=== PATIENT | female | born 1965 | race Two or more races ===

== ENCOUNTER 2025-02-04 13:51 | Inpatient (IN) | payer MEDICAID, SELFPAY ==
[2025-02-04 14:03] VITALS: BP 130/76; PULSE 89; RESP 18; TEMP 36.8; O2SAT 96; BMI 32.3
--- NOTE | 2025-02-04 14:14 | XR_ITS ---
Examination: CT abdomen with intravenous contrast CT pelvis with intravenous contrast 2-D coronal reconstructions 2-D sagittal reconstructions Date and time of exam: February 04, 2025, 1755 hours INDICATIONS: Right lower abdominal swelling and pain today. CTDI: vol (mGy) 11.7 DLP: (mGycm) 711 Technique: Multiple axial sections of the abdomen and pelvis have been obtained. 64 slice high-resolution scanner used. 3 mm axial sections have been obtained, post intravenous injection 60 cc [id number] 2-D sagittal, coronal reconstructions obtained. Low dose protocols were performed. One or more of the following dose reduction techniques were used; automated exposure control, adjustment of the mA and/or KV according to patient size, use of iterative reconstruction technique. Findings: No focal liver or splenic lesions Absent gallbladder No common bile duct stones No pancreatic mass Or peripancreatic edema Fat-containing left adrenal nodule 26 mm 2 mm nonobstructing right renal calculus, no hydronephrosis or ureteral calculi No bowel obstruction Normal appendix No pelvic mass Intact urinary bladder Extensive cellulitis pattern in the subcutaneous fatty tissue right lateral and anterior lower abdomen with skin thickening and probable enlarged right perineal lymph nodes axial image 257, cellulitis extending into the perineum Moderate osteopenia IMPRESSION: 2 mm nonobstructing right renal calculus Normal appendix Extensive cellulitis pattern in the subcutaneous fatty tissue right lateral and anterior lower abdomen with skin thickening, of the inflammation extending into the perineum No fluid-filled drainable abscess
--- NOTE | 2025-02-04 14:14 | XR_ITS ---
EXAMINATION: PA chest single view TECHNIQUE: Upright PA chest single view Date and time: February 04, 2025, 1422 hours, comparison October 12, 2015 INDICATIONS: Chest pain shortness of breath today. FINDINGS: Normal heart size. Lungs are clear. The osseous structures are intact. IMPRESSION: No active disease
--- NOTE | 2025-02-04 14:14 | EKG_ITS ---
[facility] Test Date: 2025-02-04 Pat Name: FAUSTINO RODAS Department: Room: - Gender: Female Science Job Titles: : 1965 Requested By: Aleksander Potter Order Number: [id number] Reading MD: Aleksanedr Potter Measurements Intervals Donie Rate: 92 P: 2 PA: 128 QRS: -3 QRSD: 75 T: 17 QT: 344 QTc: 426 Interpretive Statements SINUS RHYTHM LOW QRS VOLTAGE IN PRECORDIAL LEADS [QRS DEFLECTION < 1.0 mV IN CHEST LEADS] POSSIBLE ANTERIOR MYOCARDIAL INFARCTION , PROBABLY OLD [30 ms Q WAVE IN V3/V4, OR R < 0.2 mV IN V4] No previous ECG available for comparison /store/S0/[id number].pdf
--- NOTE | 2025-02-04 14:17 | PD.EDSKIN ---
ED Skin Abcess FB-RME/HPI General Chief complaint: Skin/Abscess/Foreign Body Stated complaint: SPIDER BITE R INNER THIGH Time Seen by Provider: 02/04/25 13:56 Arrival date/time: 02/04/25 13:51 59-year-old female patient with significant history of anxiety, chronic smoker, was brought in by family for evaluation regarding redness and swelling to the right lower abdominal wall. This been ongoing for the last 6 days, getting worse since 3 days ago associated with puslike drainage patient denies any fever but complain of severe pain. Denies any similar episode in the past. No medication was taken prior to ER visit. Related Data Previous Rx's ?Medication ?Instructions ?Recorded Xanax 0.25 mg 1 tab PO TID/PRN ANXIETY #12 tabs 03/21/15 Buspirone * (BUSPAR *) 10 mg PO BID PRN ANXIETY #10 tabs 10/12/15 cetirizine 10 mg tablet 10 mg PO QDAY #30 tabs 08/03/23 meloxicam 7.5 mg tablet 7.5 mg PO QDAY #10 tabs 10/27/23 Allergies Allergy/AdvReac Type Severity Reaction Status Date / Time No Known Allergies Allergy Verified 02/04/25 17:26 Review of Systems Review of Systems Narrative Review of Systems: Review of system reviewed and within normal limits except mentioned in HPI ED Exam Narrative Physical exam: VITAL SIGNS: Reviewed. GENERAL APPEARANCE: Alert and interactive, follows commands, no acute distress, HEAD AND FACE: Non-traumatic. ENT: PERRL, pink conjunctivitis, eyelid no trauma, Mucous membrane moist. NECK: Supple, nontender, no nuchal rigidity. CHEST: No tenderness, no crepitus, no paradoxical movement, no retractions. LUNGS: Clear, well ventilated, symmetric, no rales, no wheezing, no ronchi, no stridor, good breath sounds bilaterally. HEART: Regular rate, regular rhythm, no murmur, no gallops. ABDOMEN: Soft, positive bowel sounds, nondistended, no guarding,+6x 15 cm swelling, redness, tenderness right lower abdominal wall, with small opening with puslike drainage RECTAL: Deferred. GENITAL: Deferred. NEUROLOGICAL: Gross motor function intact sensory function intact, Appropriate for age. MUSCULOSKELETAL: low back nontender, full range of motion. EXTREMITIES: Nontender, full range of motion. SKIN: Color pink, dry, no rash, no lacerations, no abrasions, no contusions. LYMPHATICS: Deferred. Course Quality Measures none Orders Category Date Time Status COVID-19 Screening Questionnaire NOW Care 02/04/25 19:[address] Screening NOW Care 02/04/25 14:16 Active Decision to Admit X1 Care 02/04/25 19:14 Active EKG (ED ONLY) *Do not use* NOW Care 02/04/25 14:14 Completed Consult to General Surgery Stat Cons 02/04/25 19:[address] abdomen pelvis w con Stat Exams 02/04/25 14:14 Completed EKG (ED Only) Stat Exams 02/04/25 14:14 Draft XR chest 1V Stat Exams 02/04/25 14:14 Completed Blood Culture (Lab) Stat Lab 02/04/25 14:53 Received C-Reactive Protein Stat Lab 02/04/25 14:48 Completed CBC Stat Lab 02/04/25 14:48 Completed Comprehensive Metabolic Panel Stat Lab 02/04/25 14:48 Completed Lactate (Lactic Acid) Stat Lab 02/04/25 14:48 Completed Partial Thromboplastin Time Stat Lab 02/04/25 14:48 Completed Procalcitonin Stat Lab 02/04/25 14:48 Completed Clindamycin/Ns 600 mg Ivpb [Cleocin/Ns Ivpb] Med 02/04/25 14:16 Discontinued 600 mg in 50 ml IV X1 Ketorolac Inj [Toradol Inj] Med 02/04/25 14:14 Discontinued 30 mg IVP X1 ONE Morphine* Inj Med 02/04/25 18:16 Discontinued 4 mg IVP X1 ONE Piper/Tazo 3.375 gm Premix [Zosyn] Med 02/04/25 14:15 Discontinued 3.375 gm in 50 ml IV X1 Vital Signs Vital signs: Vital Signs Temperature 98.3 F 02/04/25 14:03 Pulse Rate 89 02/04/25 14:03 Respiratory Rate 18 02/04/25 14:03 Blood Pressure 130/76 02/04/25 14:03 Pulse Oximetry (%) 96 02/04/25 14:03 Oxygen Delivery Method Room Air 02/04/25 14:03 Skin / Abscess / Foreign Body MDM Narrative MDM Narrative:: 59-year-old female patient with significant history of anxiety, chronic smoker, was brought in by family for evaluation regarding redness and swelling to the right lower abdominal wall. This been ongoing for the last 6 days, getting worse since 3 days ago associated with puslike drainage patient denies any fever but complain of severe pain. Denies any similar episode in the past. No medication was taken prior to ER visit. Patient workup significant for leukocytosis 17,000, Pro-Josef slight elevated. Lactic acid is normal. Patient potassium was noted to be 3.3. CT scan of the abdomen and pelvis showed 2 mm nonobstructing right renal calculus Normal appendix Extensive cellulitis pattern in the subcutaneous fatty tissue right lateral and anterior lower abdomen with skin thickening, of the inflammation extending into the perineum No fluid-filled drainable abscess I personally reviewed and interpreted the x-ray of this patient. There is no acute abnormalities found, no infiltrates no pneumothorax no hemothorax normal chest x-ray. Review of other structures was without significant abnormal findings also. I additionally reviewed the radiologist report and agree with the interpretation. EKG showed normal sinus rhythm, ventricular rate of 92 bpm, no ST segment elevation or depression noted. Patient received IV Zosyn, IV clindamycin morphine and Toradol. I consulted Dr. Conte, spoke and discussed the case, and told me that hospitalist can admit the patient, IV antibiotic, as of now he is not planning to do anything. Spoke with hospitalist who admitted the patient. Patient data External records reviewed:: None Clinical information provided by:: patient Social determinants that could affect healthcare access:: none Patient has the following chronic illnesses:: None How is presenting disease/condition affected by chronic disease/condition?: no chronic disease Evaluation data The following diagnostics were reviewed and interpreted by me:: lab results, radiology exam(s) and EKG tracing(s) Lab and/or radiology exams considered but not ordered:: none Interpretation Summary: See results MDM Medications / Prescriptions Medications or Prescriptions considered but not ordered:: None Medication administrations:: Medication Administration History Discontinued Medications Piperacillin/Tazobactam/Dextrose (Zosyn) 3.375 gm in 50 mls @ 100 mls/hr IV X1 ONE; Protocol Stop: 02/04/25 14:44 Last Infusion: 02/04/25 17:53 Dose: Infused Documented By: Admin: 02/04/25 17:20 Dose: 100 mls/hr Documented By: MORELIA Clindamycin/Sodium Chloride (Cleocin/Ns Ivpb) 600 mg in 50 mls @ 100 mls/hr IV X1 ONE Stop: 02/04/25 14:45 Last Infusion: 02/04/25 17:53 Dose: Infused Documented By: Admin: 02/04/25 17:20 Dose: 100 mls/hr Documented By: MORELIA Ketorolac Tromethamine (Ketorolac Inj 30 Mg/Ml Vial) 30 mg IVP X1 ONE Stop: 02/04/25 14:15 Last Admin: 02/04/25 17:19 Dose: 30 mg Documented By: MORELIA Morphine Sulfate (Morphine Sulf Inj 4 Mg/Ml Vial) 4 mg IVP X1 ONE Stop: 02/04/25 18:17 Last Admin: 02/04/25 18:33 Dose: 4 mg Documented By: MORELIA Morphine, Toradol, clinda Zosyn Consultations Consultation(s) initiated? (list below): No Diagnosis Skin/Abscess Differential Diagnosis: abscess of skin or subcutaneous tissue and cellulitis Most likely diagnosis given after review of the tests above:: Abdominal wall cellulitis/abscess Admission Indicated Admission indicated?: indicated Explain why admission is indicated or not indicated:: For further management IV antibiotic Admission Request Was there a request for admission?: Yes Admission Attestation Admission request attestation: Discussed case with Hospitalist service regarding admission. Discussed patients ED course, exam findings, labs, and radiology results. The Hospitalist [agrees to accept the patient for admission. Disposition Plan Disposition Plan: Admit Discharge Plan Plan Patient Disposition: Admit Acute Care w/in Hospital Prescriptions/Referrals Prescriptions/Med Rec: No Action Xanax 0.25 mg 1 tab PO TID/PRN ANXIETY Qty: 12 0RF Buspirone * (BUSPAR *) 10 MG tablet 10 mg PO BID PRN (Reason: ANXIETY) Qty: 10 0RF cetirizine 10 mg tablet 10 mg PO QDAY Qty: 30 0RF meloxicam 7.5 mg tablet 7.5 mg PO QDAY Qty: 10 0RF Problem List Clinical Impression: Cellulitis of right abdominal wall Patient/Caregiver Discharge Instructions Print Language: Turkmen Stand Alone Forms: Ramila Award Info., Patient Portal Info Letter
[2025-02-04 15:02] LABS: Lactate (Lactic Acid) 1.2 mMol/L (0.4-2.0)
[2025-02-04 15:05] LABS: Basophils # (Auto) 0.0 Thou/mm3 (0.0-0.2); Basophils % (Auto) 0 % (0-2.5); Eosinophils # (Auto) 0.1 Thou/mm3 (0.0-0.5); Eosinophils % (Auto) 1 % (0-10); Hematocrit 36.6 % (36.0-46.0); Hemoglobin 12.4 g/dL (12.0-16.0); Immature Granulocytes Auto 0.11 Thou/mm3 (0.00-0.00); Lymphocytes # (Auto) 1.4 Thou/mm3 (1.0-4.8); Lymphocytes % (Auto) 8 % (10-50); Mean Corpuscular HGB Conc 33.9 g/dl (31.0-37.0); Mean Corpuscular Hemoglobin 31.8 pg (25.0-35.0); Mean Corpuscular Volume 94 fL (80-100); Monocytes # (Auto) 0.9 Thou/mm3 (0.0-0.8); Monocytes % (Auto) 5 % (0-12); Neutrophils # (Auto) 14.8 Thou/mm3 (1.8-7.7); Neutrophils % (Auto) 86 % (37-80); Nucleated Red Blood Cell # 0.00 Thou/mm3 (0.00-0.00); Nucleated Red Blood Cell % 0 /100 WBC (0); Platelet Count 400 Thou/mm3 (140-440); RDW Standard Deviation 46.7 fL (36.4-46.3); Red Blood Count 3.90 Miln/mm3 (4.00-5.20); White Blood Count 17.3 Thou/mm3 (3.6-11.0)
[2025-02-04 15:30] LABS: Partial Thromboplastin Time 28.9 Seconds (22.0-36.0)
[2025-02-04 15:44] LABS: Alanine Aminotransferase 23 U/L (10-49); Albumin, Serum 4.0 gm/dL (3.5-5.0); Albumin/Globulin Ratio 1.5 (1.2-2.2); Alkaline Phosphatase 146 U/L (46-116); Anion Gap 11 (7-16); Aspartate Amino Transferase 21 U/L (0-34); BUN/Creatinine Ratio 21 Ratio (12-20); Bilirubin,Total 0.3 mg/dL (0.3-1.2); Blood Urea Nitrogen 15 mg/dL (9-23); Calcium 8.8 mg/dL (8.3-10.6); Calcium (Corrected) 8.8 mg/dL (8.5-10.1); Carbon Dioxide 22.4 mMol/L (20.0-31.0); Chloride 106 mMol/L (98-107); Creatinine (Component) 0.7 mg/dL (0.6-1.3); Estimated Creatinine Clearance 98.2 mL/min (>60); Globulin 2.7 gm/dL (2.3-3.5); Glucose 104 mg/dL (74-106); Osmolality,Calculated 278 (275-295); Potassium 3.3 mMol/L (3.4-5.1); Procalcitonin 1.45 ng/ml (0.0-0.49); Sodium 139 mMol/L (136-145); Total Protein 6.7 gm/dL (5.7-8.2); eGFR > 60 See Note
[2025-02-04 16:13] LABS: C-Reactive Protein 26.5 mg/dL (0.0-0.9)
[2025-02-04 17:05] VITALS: BP 117/67; PULSE 84; RESP 20; TEMP 36.8; O2SAT 99
[2025-02-04] MEDS: KETOROLAC INJ 30 MG/ML VIAL IVP (17:19)
[2025-02-04] MEDS: PIPER/TAZO 3.375 GM PREMIX 3.375 GM/50 ML BAG IV (17:20)
[2025-02-04] MEDS: CLINDAMYCIN/NS 600 MG IVPB 600 MG/50 ML BAG 100 MG IV (17:20)
[2025-02-04] MEDS: MORPHINE SULF INJ 4 MG/ML VIAL IVP (18:33)
--- NOTE | 2025-02-04 23:02 | PC.NURSE ---
REPORT GIVEN TO FLOOR GEGE SUTTON
--- NOTE | 2025-02-04 23:18 | PD.RESHP ---
Documentation for date of: 02/04/25 HPI History of Present Illness History of present illness: Ms. Winchester is a 59 y/o female with PMH anxiety, tobacco use who presented to the ED on 02/04 with progressive erythema, pain, and swelling of the right lower abdominal wall that extends to mons pubis and vulva x 7 days. She first noticed the redness develop 7 days ago associated with pruritus, resulting in itching of the affected area. Associated with pus-like drainage. Denies trauma of the area, recent infection, immunosuppression, diabetes. Denies fever, chills, myalgia, malaise, nausea, vomiting, constipation, diarrhea, urinary sx. ED course: Afebrile, VSS. Labs significant for WBC 17.3, K 3.3, alk phos 146, lactic acid 1.2, CRP 26.5, procal 1.45. CT a/p w/ contrast showed 2 mm nonobstructing right renal calculus; cellulitis of right lateral and anterior lower abdomen extending into perineum, no drainable abscess. Consulted Dg, noted no surgical intervention appropriate at this time. Given ketorolac 30 mg IV, Zosyn 3.365 g IV, Clindamycin 600 mg IV, morphine 4 mg IV. PMHx: anxiety, tobacco use Allergies: NKDA Home meds: none SgHx: cholecystectomy SHx: Smokes 3-4 cigarettes per day x 20 years. Denies EtOH or recreational drug use. FHx: none reported Review of Systems Review of Systems Narrative Review of Systems: 14 point ROS negative other than HPI Exam Vital Signs Temp Pulse Resp BP Pulse Ox O2 Del Method 98.2 F 84 20 117/67 99 Room Air 02/04/25 17:05 02/04/25 17:05 02/04/25 17:05 02/04/25 17:05 02/04/25 17:05 02/04/25 17:05 Narrative Exam General: No acute distress, well nourished Eye: PERRL, EOMI, normal conjunctiva, no scleral icterus HENT: Normocephalic, atraumatic, normal hearing, moist oral mucosa Neck: Supple, non-tender, no JVD, no lymphadenopathy Lungs: Clear to auscultation bilaterally, non-labored respirations, symmetric chest rise, no use of accessory muscles Heart: Normal S1 and S2, no S3 or S4 appreciated. Normal rate and regular rhythm, no murmurs, rubs gallops, or edema. Peripheral pulses intact bilaterally, capillary refill brisk distally Abdomen: Soft, non-tender, non-distended, normal bowel sounds. No guarding or rebound tenderness. Musculoskeletal: Normal range of motion and strength, no tenderness or swelling Skin: Erythematous, warm, edematous, firm and exquisitely tender area of right lower quadrant extending to left lower abdomen, mons pubis, and vulva. One open lesion on the mons pubis weeping serosanguinous fluid Neurologic: Alert, awake and oriented x3. CN II-XII grossly intact. No focal neuro deficits. No signs of meningeal irritation noted. Psychiatric: Cooperative, appropriate mood and affect Results: Labs 02/05/25 04:48 02/05/25 07:20 Labs: Short CBC 02/04/25 Range/Units 14:48 WBC 17.3 H (3.6-11.0) Thou/mm3 Hgb 12.4 (12.0-16.0) g/dL Hct 36.6 (36.0-46.0) % Plt Count 400 (140-440) Thou/mm3 BMP 02/04/25 14:48 Sodium 139 Potassium 3.3 L Chloride 106 Carbon Dioxide 22.4 BUN 15 Creatinine 0.7 Glucose 104 Calcium 8.8 Liver Function 02/04/25 Range/Units 14:48 Total Bilirubin 0.3 (0.3-1.2) mg/dL AST 21 (0-34) U/L ALT 23 (10-49) U/L Alkaline Phosphatase 146 H (46-116) U/L Albumin 4.0 (3.5-5.0) gm/dL Quality Measures Quality Measures VTE prophylaxis Medications Home Medications and Allergies Allergies Allergy/AdvReac Type Severity Reaction Status Date / Time No Known Allergies Allergy Verified 02/04/25 17:26 Visit Medications Acetaminophen (Acetaminophen 325 Mg Tablet) 650 mg PO Q6H PRN PRN Reason: Fever >100.3 Stop: 03/06/25 21:35 Acetaminophen (Acetaminophen 325 Mg Tablet) 650 mg PO Q6H PRN PRN Reason: PAIN SCALE 1-3 (mild Stop: 03/06/25 21:35 Heparin Sodium (Porcine) (Heparin Sod Inj 5000 Unit/Ml Vial) 5,000 unit SC Q8HR IMAN Stop: 02/18/25 21:59 Piperacillin/Tazobactam/Dextrose (Zosyn) 50 mls @ 100 mls/hr IV Q6HR IMAN; Protocol Stop: 02/11/25 21:40 Morphine Sulfate (Morphine Sulf Inj 4 Mg/Ml Vial) 2 mg IVP Q6HR PRN PRN Reason: pain 4-7 Stop: 02/09/25 21:38 Ondansetron HCl (Ondansetron Inj 2 Mg/Ml Inj 2 Ml) 4 mg IVP Q6H PRN; Protocol PRN Reason: NAUSEA OR VOMITING Stop: 03/06/25 21:35 Discontinued Medications Piperacillin/Tazobactam/Dextrose (Zosyn) 3.375 gm in 50 mls @ 100 mls/hr IV X1 ONE; Protocol Stop: 02/04/25 14:44 Last Infusion: 02/04/25 17:53 Dose: Infused Clindamycin/Sodium Chloride (Cleocin/Ns Ivpb) 600 mg in 50 mls @ 100 mls/hr IV X1 ONE Stop: 02/04/25 14:45 Last Infusion: 02/04/25 17:53 Dose: Infused Ketorolac Tromethamine (Ketorolac Inj 30 Mg/Ml Vial) 30 mg IVP X1 ONE Stop: 02/04/25 14:15 Last Admin: 02/04/25 17:19 Dose: 30 mg Morphine Sulfate (Morphine Sulf Inj 4 Mg/Ml Vial) 4 mg IVP X1 ONE Stop: 02/04/25 18:17 Last Admin: 02/04/25 18:33 Dose: 4 mg Assessment & Plan Plan Ms. Winchester is a 59 y/o female with PMH anxiety, tobacco use who presented to the ED on 02/04 with progressive erythema, pain, and swelling of the right lower abdominal wall that extends to mons pubis and vulva x 7 days. Admitted for cellulitis. #Cellulitis of right lateral and anterior lower abdomen Erythema, edema, warmth, and TTP RLQ, mons pubis, and vulva with lesion weeping serosanguinous fluid x 7 days Afebrile, leukocytosis WBC 17.3. Lactic acid WNL. Procal 1.45, CRP 26.5. Seen on CT a/p w/ - extends into peritoneum. No fluid filled abscess to drain Dr. Conte consulted, no surgical intervention required at this time Given ketorolac 30 mg IV, Zosyn 3.365 g IV, Clindamycin 600 mg IV, morphine 4 mg IV. Risk factors: smoking, obesity Plan: - Consulted gen surg, appreciate recs - Zosyn 3.375 g IV q6h, Vancomycin - Tylenol PO PRN, Morphine 2 mg IV q6h PRN - Pending blood cx, HIV, A1C #Hypokalemia On admit K 3.3 Plan: - Replete as needed #Normocytic anemia No symptoms/signs of active bleed Continue to monitor daily cbc follow up with pcp. #Class I obesity Dietery adjustment and exercise recommended. Follow up outpatient with pcp Checklist Dispo: Admit to med surg for IV abx Diet: Regular Bowel Reg: doc/senna PRN VTE ppx: heparin subQ GI ppx: n/a Pain mgmt: Tylenol PO PRN, morphine 2 mg IV q6h PRN Code status: full Plan discussed with Dr. Scott and Dr. Yenifer Evangelista MD PGY1 Attending Provider Attestation/Addendum After examination of the patient and review of the clinical data I feel that this patient needs admission to the hospital for further treatment/evaluation. Plan of care discussed with patient and is in agreement. I Cindy Street MD, attest that I was physically present for loaiza portions of evaluation, and examined patient, labs and imagings and plan of care were discussed with IM residents team, and I agree with the findings and plans documented above.
[2025-02-05] MEDS: PIPER/TAZO 3.375 GM PREMIX 3.375 GM/50 ML BAG IV ×4 (00:11→21:04)
[2025-02-05] MEDS: HEPARIN SOD INJ 5000 UNIT/ML VIAL SC ×4 (00:11→21:05)
[2025-02-05 00:14] LABS: HIV (1&2) Antibody Rapid Non-Reactive
[2025-02-05 00:23] VITALS: BMI 32.3
[2025-02-05] MEDS: MORPHINE SULF INJ 4 MG/ML VIAL 2 MG IVP ×4 (01:02→20:50)
[2025-02-05] MEDS: VANCOMYCIN/NS 1 GM IVPB 200 ML IV (01:04)
[2025-02-05 01:05] VITALS: BP 114/63; PULSE 85; RESP 18; TEMP 36.7; O2SAT 97
[2025-02-05 01:41] LABS: INR 1.0 (0.9-1.3); Prothrombin Time 10.3 Seconds (9.0-12.2)
[2025-02-05 04:00] VITALS: BP 102/60; PULSE 85; RESP 16; TEMP 36.7; O2SAT 95
[2025-02-05] MEDS: ACETAMINOPHEN 325 MG TABLET 650 MG PO (05:35)
[2025-02-05 06:14] LABS: Basophils # (Auto) 0.0 Thou/mm3 (0.0-0.2); Basophils % (Auto) 0 % (0-2.5); Eosinophils # (Auto) 0.1 Thou/mm3 (0.0-0.5); Eosinophils % (Auto) 1 % (0-10); Hematocrit 31.4 % (36.0-46.0); Hemoglobin 10.6 g/dL (12.0-16.0); Immature Granulocytes Auto 0.09 Thou/mm3 (0.00-0.00); Lymphocytes # (Auto) 1.8 Thou/mm3 (1.0-4.8); Lymphocytes % (Auto) 13 % (10-50); Mean Corpuscular HGB Conc 33.8 g/dl (31.0-37.0); Mean Corpuscular Hemoglobin 32.0 pg (25.0-35.0); Mean Corpuscular Volume 95 fL (80-100); Monocytes # (Auto) 0.9 Thou/mm3 (0.0-0.8); Monocytes % (Auto) 7 % (0-12); Neutrophils # (Auto) 11.2 Thou/mm3 (1.8-7.7); Neutrophils % (Auto) 80 % (37-80); Nucleated Red Blood Cell # 0.00 Thou/mm3 (0.00-0.00); Nucleated Red Blood Cell % 0 /100 WBC (0); Platelet Count 371 Thou/mm3 (140-440); RDW Standard Deviation 47.8 fL (36.4-46.3); Red Blood Count 3.31 Miln/mm3 (4.00-5.20); White Blood Count 14.0 Thou/mm3 (3.6-11.0)
[2025-02-05 06:41] LABS: Glucose Estimated Average 100 mg/dL (80-131); Hemoglobin A1C 5.1 % Hgb (4.8-6.0)
[2025-02-05 08:00] VITALS: BP 108/60; PULSE 78; RESP 18; TEMP 36.3; O2SAT 96
[2025-02-05 09:03] LABS: Alanine Aminotransferase 26 U/L (10-49); Albumin, Serum 3.3 gm/dL (3.5-5.0); Albumin/Globulin Ratio 2.1 (1.2-2.2); Alkaline Phosphatase 125 U/L (46-116); Anion Gap 7 (7-16); Aspartate Amino Transferase 27 U/L (0-34); BUN/Creatinine Ratio 30 Ratio (12-20); Bilirubin,Total 0.3 mg/dL (0.3-1.2); Blood Urea Nitrogen 18 mg/dL (9-23); Calcium 8.0 mg/dL (8.3-10.6); Calcium (Corrected) 8.6 mg/dL (8.5-10.1); Carbon Dioxide 22.1 mMol/L (20.0-31.0); Chloride 106 mMol/L (98-107); Creatinine (Component) 0.6 mg/dL (0.6-1.3); Estimated Creatinine Clearance 114.5 mL/min (>60); Globulin 1.6 gm/dL (2.3-3.5); Glucose 101 mg/dL (74-106); Magnesium 1.8 mg/dL (1.6-2.6); Osmolality,Calculated 272 (275-295); Phosphorous 2.5 mg/dL (2.4-5.1); Potassium 4.3 mMol/L (3.4-5.1); Sodium 135 mMol/L (136-145); Total Protein 4.9 gm/dL (5.7-8.2); eGFR > 60 See Note
--- NOTE | 2025-02-05 09:35 | PC.SS ---
Follow up note: Blood cultures pending. On IV antibiotic.
[2025-02-05] MEDS: VANCOMYCIN/D5W 1,250 MG IVPB 250 ML 120 MG IV ×2 (10:19→21:05)
--- NOTE | 2025-02-05 10:21 | PD.RESPRO ---
Documentation for date of: 02/05/25 Subjective Subjective Interval history: WBC count decreased from 17.5 to 14.0. On IV zosyn 3.375mg q6hr, IV vancomycin, IV Clindamycin 900mg IV q8hr, Waiting for blood culture, Consulted [facility]. Will continue to monitor. Exam Vital Signs Temp Pulse Resp BP Pulse Ox O2 Del Method 97.4 F 78 18 108/60 96 Room Air 02/05/25 08:00 02/05/25 08:00 02/05/25 08:00 02/05/25 08:00 02/05/25 08:00 02/05/25 08:00 Narrative Exam General: No acute distress, well nourished, AAO x3 Eye: PERRL, EOMI, normal conjunctiva, no scleral icterus HENT: Normocephalic, atraumatic, hearing intact to conversation at normal volume, moist oral mucosa Neck: Supple, non-tender, no JVD, no lymphadenopathy Lungs: Non-labored respirations, symmetric chest rise, Clear to auscultate bilaterally, No wheezing, rhonchi, crackles Heart: Peripheral pulses intact bilaterally, Regular Rate and Rhythm. Abdomen: see Skin Musculoskeletal: Normal range of motion and strength, No cyanosis or edema, No visible joint swelling Skin: Swelling, erythema, and a firm, tender area extending from the right lower quadrant to the mid-left lower quadrant, involving the mons pubis and vulvar region. The area is malodorous with purulent and serosanguinous drainage, including dark blood. Psychiatric: Cooperative, appropriate mood and affect, Awake and alert, not agitated Neuro: Cranial nerves II-XII grossly intact. Strength 5/5 throughout. Sensations intact to light touch. Objective Labs 02/06/25 05:23 02/06/25 05:23 Labs: Laboratory Results - last 24 hr 02/04/25 02/04/25 02/05/25 14:48 19:48 00:11 WBC 17.3 H RBC 3.90 L Hgb 12.4 Hct 36.6 MCV 94 MCH 31.8 MCHC 33.9 RDW Std Deviation 46.7 H Plt Count 400 Neut % (Auto) 86 H Lymph % (Auto) 8 L [place] % (Auto) 5 Eos % (Auto) 1 Baso % (Auto) 0 Neut # (Auto) 14.8 H Lymph # (Auto) 1.4 [place] # (Auto) 0.9 H Eos # (Auto) 0.1 Baso # (Auto) 0.0 Immature Gran # (Auto) 0.11 H Absolute Nucleated RBC 0.00 Immature Gran % 1 H Nucleated RBC % 0 PT Cancelled 10.3 INR Cancelled 1.0 APTT 28.9 Sodium 139 Potassium 3.3 L Chloride 106 Carbon Dioxide 22.4 Anion Gap 11 BUN 15 Creatinine 0.7 Estim Creat Clear Calc 98.2 eGFR > 60 BUN/Creatinine Ratio 21 [address] Glucose [address] Glu mg/dL Hemoglobin A1c Calculated Osmolality 278 Lactic Acid 1.2 Calcium 8.8 Corrected Calcium 8.8 Phosphorus Magnesium Total Bilirubin 0.3 AST 21 ALT 23 Alkaline Phosphatase 146 H C-Reactive Prot, Quant 26.5 H Total Protein 6.7 Albumin 4.0 Globulin 2.7 Albumin/Globulin Ratio 1.5 Procalcitonin 1.45 H HIV 1&2 Antibody Rapid Non-Reactive 02/05/25 02/05/25 04:48 07:20 WBC 14.0 H RBC 3.31 L Hgb 10.6 L Hct 31.4 L MCV 95 MCH 32.0 MCHC 33.8 RDW Std Deviation 47.8 H Plt Count 371 Neut % (Auto) 80 Lymph % (Auto) 13 [place] % (Auto) 7 Eos % (Auto) 1 Baso % (Auto) 0 Neut # (Auto) 11.2 H Lymph # (Auto) 1.8 [place] # (Auto) 0.9 H Eos # (Auto) 0.1 Baso # (Auto) 0.0 Immature Gran # (Auto) 0.09 H Absolute Nucleated RBC 0.00 Immature Gran % 1 H Nucleated RBC % 0 PT INR APTT Sodium 135 L Potassium 4.3 D Chloride 106 Carbon Dioxide 22.1 Anion Gap 7 BUN 18 Creatinine 0.6 Estim Creat Clear Calc 114.5 eGFR > 60 BUN/Creatinine Ratio 30 H Glucose [address] Glu mg/dL 100 Hemoglobin A1c 5.1 Calculated Osmolality 272 L Lactic Acid Calcium 8.0 L Corrected Calcium 8.6 Phosphorus 2.5 Magnesium 1.8 Total Bilirubin 0.3 AST 27 ALT 26 Alkaline Phosphatase 125 H D C-Reactive Prot, Quant Total Protein 4.9 L Albumin 3.3 L D Globulin 1.6 L Albumin/Globulin Ratio 2.1 Procalcitonin HIV 1&2 Antibody Rapid Quality Measures Quality Measures none Assessment & Plan Assessment Current Active Medications: Generic Name Dose Route Start Last Admin Trade Name Freq PRN Reason Stop Dose Admin Acetaminophen 650 mg 02/04/25 21:36 Acetaminophen 325 Mg Tablet PO 03/06/25 21:35 Q6H PRN Fever >100.3 Acetaminophen 650 mg 02/04/25 21:36 02/05/25 05:35 Acetaminophen 325 Mg Tablet PO 03/06/25 21:35 650 mg Q6H PRN Administration PAIN SCALE 1-3 (mild Heparin Sodium (Porcine) 5,000 unit 02/04/25 22:00 02/05/25 05:23 Heparin Sod Inj 5000 Unit/Ml Vial SC 02/18/25 21:59 5,000 unit Q8HR IMAN Administration Piperacillin/Tazobactam/Dextrose 3.375 gm in 50 mls @ 12.5 mls/hr 02/05/25 14:00 Zosyn IV 02/12/25 13:59 Q8HR IMAN Protocol Vancomycin HCl/Dextrose 250 mls @ 120 mls/hr 02/05/25 10:00 02/05/25 10:19 Vancomycin/D5w 1,250 Mg Ivpb IV 02/12/25 09:59 120 mls/hr Q12H IMAN Administration Protocol Morphine Sulfate 2 mg 02/04/25 21:39 02/05/25 06:37 Morphine Sulf Inj 4 Mg/Ml Vial IVP 02/09/25 21:38 2 mg Q6HR PRN Administration pain 4-7 Ondansetron HCl 4 mg 02/04/25 21:36 Ondansetron Inj 2 Mg/Ml Inj 2 Ml IVP 03/06/25 21:35 Q6H PRN NAUSEA OR VOMITING Protocol Pharmacy Consult 1 each 02/05/25 09:00 Vancomycin Pharmacy To Dose 1 Each Each IV 03/07/25 08:59 QDAY PRN PROTOCOL Sennosides 1 tab 02/04/25 23:38 Senna/Docusate Sod 1 Tab Tablet PO 03/06/25 23:37 QDAY PRN CONSTIPATION Protocol Plan Ms. Winchester is a 59 y/o female with PMH anxiety, tobacco use who presented to the ED on 02/04 with progressive erythema, pain, and swelling of the right lower abdominal wall that extends to mons pubis and vulva x 7 days. Admitted for cellulitis. #Cellulitis of right lateral and anterior lower abdomen -Erythema, edema, warmth, and TTP RLQ, mons pubis, and vulva with lesion weeping serosanguinous fluid x 7 days -Afebrile, leukocytosis WBC 17.3. Lactic acid WNL. Procal 1.45, CRP 26.5. -Seen on CT a/p w/ - extends into peritoneum. No fluid filled abscess to drain -Dr. Conte consulted, no surgical intervention required at this time -Given ketorolac 30 mg IV, Zosyn 3.365 g IV, Clindamycin 600 mg IV, morphine 4 mg IV. -Risk factors: smoking, obesity Plan: - Consulted gen surg, appreciate recs - On IV zosyn 3.375mg q6hr, IV vancomycin, IV Clindamycin 900mg IV q8hr - Tylenol PO PRN, Morphine 2 mg IV q6h PRN - Pending blood cx, HIV, A1C #Hypokalemia On admit K 3.3 Plan: - Replete as needed Checklist Dispo: Admit to med surg for IV abx Diet: Regular Bowel Reg: doc/senna PRN VTE ppx: heparin subQ GI ppx: n/a Pain mgmt: Tylenol PO PRN, morphine 2 mg IV q6h PRN Code status: full Assessment and plan discussed with my attending physician Dr. Arthur and Dr. Luis (PGY-2) Dr. Fish (PGY-1) - Internal medicine resident Attending Provider Attestation/Addendum I have examined the patient, reviewed labs and imaging findings, discussed the case with the resident(s), and reviewed entered orders. I agree with the plan of care as outlined in this note, with these additional summaries/recommendations: Patient seen at bedside. Patient admitted overnight for significant cellulitis. CT abdomen and pelvis revealed extensive cellulitis pattern in the subcutaneous fatty tissue in right lateral and anterior lower abdomen with skin thickening and inflammation extending into the perineum. At bedside patient does not have any physical exam findings of peritonitis rebound tenderness or acute abdomen. She currently reports her pain is controlled. General surgery was consulted and no surgical intervention needed at this time. Continue broad-spectrum antibiotics. Blood cultures show no growth at 24 hours. Mild hypokalemia and replacement given. Repeat level in AM. Continue pain management. Patient to let medical team know if she would like nicotine patch. Patient updated on the plan and agreement. All questions answered satisfaction. Please see residents note for additional details and management. Dr. Sandhya MD
--- NOTE | 2025-02-05 11:46 | PC.SS ---
SS met with patient regarding her d/c plan. Pt is alert/oriented. Pt was admitted for Cellulitis. Pt confirmed demographic and contact information is correct on facesheet. Pt resides with son. Pt ambulates independently without assistance or DME. Pt is ok with all ADLs. Pt is employed abstractor. Patient?s pharmacy of choice is [facility]. Pt named her dtr, Concetta Winchester medical decision maker if she is unable. Patient?s choice is to return home upon d/c. Pt states she is not diabetic and is not on dialysis. Dtr will provide transportation. Pt states she followed up with PCP 3 years ago. Pt states she will schedule a follow up appointment with PCP. D/C plan: Return home Next of Kin: Arlin Winchester dtr, phone# [phone] PCP: [facility] Address: Correct on facesheet
[2025-02-05 12:00] VITALS: BP 90/59; PULSE 88; RESP 18; TEMP 36.6; O2SAT 98
--- NOTE | 2025-02-05 13:00 | PD.SURCONS ---
HPI Consult details Consult date: 02/05/25 Reason for consultation narrative: Lower abdominal cellulitis History of present illness: 59-year-old obese female with history of anxiety presented with worsening pain and erythema of right lower quadrant extending to perineum. Patient states that she may have been bitten by insect or spider about a week ago. She had some pain that has been getting progressively worse with increased erythema. She denies fever, chills, drainage or bleeding. She denies having similar symptoms in the past. CT scan revealed cellulitis without fluid collection. She was started on IV antibiotics and admitted. Since admission her symptoms are improving, the cellulitis have decreased from the previously placed markings. Review of Systems Constitutional Constitutional: Denies chills and Denies fever(s) Cardiovascular Cardiovascular: Denies chest pain Respiratory Respiratory: Denies cough Gastrointestinal Gastrointestinal: Reports abdominal pain, Denies nausea and Denies vomiting Genitourinary Genitourinary: Denies difficulty voiding Hematologic/Lymphatic Hematologic/Lymphatic: Denies easy bleeding and Denies easy bruising Past Medical History Surgical History OTHER SURGICAL HX: Cholecystectomy Social History SMOKING STATUS: Current every day smoker SUBSTANCE USE: does not use ALCOHOL: Never Meds Home Medications and Allergies Allergies Allergy/AdvReac Type Severity Reaction Status Date / Time No Known Allergies Allergy Verified 02/04/25 17:26 Exam Vital Signs Temp Pulse Resp BP Pulse Ox O2 Del Method 97.4 F 78 18 108/60 96 Room Air 02/05/25 08:00 02/05/25 08:00 02/05/25 08:00 02/05/25 08:00 02/05/25 08:00 02/05/25 08:00 Constitutional Constitutional: no acute distress Routine Abdominal Exam Comments: Abdomen is soft and nondistended. She has cellulitis of her right lower quadrant extending to mons pubis. She has tenderness to palpation with induration, there is no fluctuance at this time Results Results: Laboratory Laboratory results: results reviewed Results: Imaging CT scan - abdomen: report reviewed and image reviewed CT scan - pelvis: report reviewed and image reviewed Assessment & Plan Problem List (1) Cellulitis of right abdominal wall: Status: Acute Additional Assessment Additional comments: Significant cellulitis of lower abdominal wall extending to mons pubis without evidence of abscess at this time. Clinically improving Plan Continue IV antibiotics. Add clindamycin. No indications for surgical intervention at this time. She may require incision and drainage if she develops an abscess
[2025-02-05] MEDS: CLINDAMYCIN 900MG IVPB 900 MG in PRE-MIXED 1 BAG 50 MG IV ×2 (15:10→21:04)
[2025-02-05 16:00] VITALS: BP 120/73; PULSE 80; RESP 18; TEMP 36.3; O2SAT 97
[2025-02-05 20:00] VITALS: BP 114/59; PULSE 83; RESP 18; TEMP 36.4; O2SAT 97
[2025-02-06] VITALS: BP 130/70; PULSE 81; RESP 18; TEMP 36.7; O2SAT 98
[2025-02-06] MEDS: ACETAMINOPHEN 325 MG TABLET 650 MG PO (00:17)
[2025-02-06 04:00] VITALS: BP 103/65; PULSE 71; RESP 18; TEMP 36.1; O2SAT 97
[2025-02-06] MEDS: PIPER/TAZO 3.375 GM PREMIX 3.375 GM/50 ML BAG IV ×3 (05:33→21:07)
[2025-02-06] MEDS: HEPARIN SOD INJ 5000 UNIT/ML VIAL SC ×3 (05:34→21:07)
[2025-02-06] MEDS: CLINDAMYCIN 900MG IVPB 900 MG in PRE-MIXED 1 BAG 50 MG IV ×3 (05:34→21:06)
[2025-02-06 06:18] LABS: Basophils # (Auto) 0.0 Thou/mm3 (0.0-0.2); Basophils % (Auto) 0 % (0-2.5); Eosinophils # (Auto) 0.2 Thou/mm3 (0.0-0.5); Eosinophils % (Auto) 1 % (0-10); Hematocrit 30.9 % (36.0-46.0); Hemoglobin 10.4 g/dL (12.0-16.0); Immature Granulocytes Auto 0.13 Thou/mm3 (0.00-0.00); Lymphocytes # (Auto) 2.7 Thou/mm3 (1.0-4.8); Lymphocytes % (Auto) 21 % (10-50); Mean Corpuscular HGB Conc 33.7 g/dl (31.0-37.0); Mean Corpuscular Hemoglobin 31.8 pg (25.0-35.0); Mean Corpuscular Volume 95 fL (80-100); Monocytes # (Auto) 1.0 Thou/mm3 (0.0-0.8); Monocytes % (Auto) 8 % (0-12); Neutrophils # (Auto) 8.7 Thou/mm3 (1.8-7.7); Neutrophils % (Auto) 68 % (37-80); Nucleated Red Blood Cell # 0.00 Thou/mm3 (0.00-0.00); Nucleated Red Blood Cell % 0 /100 WBC (0); Platelet Count 368 Thou/mm3 (140-440); RDW Standard Deviation 47.6 fL (36.4-46.3); Red Blood Count 3.27 Miln/mm3 (4.00-5.20); White Blood Count 12.7 Thou/mm3 (3.6-11.0)
[2025-02-06 06:48] LABS: Alanine Aminotransferase 25 U/L (10-49); Albumin, Serum 3.5 gm/dL (3.5-5.0); Albumin/Globulin Ratio 1.8 (1.2-2.2); Alkaline Phosphatase 127 U/L (46-116); Anion Gap 10 (7-16); Aspartate Amino Transferase 20 U/L (0-34); BUN/Creatinine Ratio 17 Ratio (12-20); Bilirubin,Total 0.3 mg/dL (0.3-1.2); Blood Urea Nitrogen 10 mg/dL (9-23); Calcium 8.7 mg/dL (8.3-10.6); Calcium (Corrected) 9.1 mg/dL (8.5-10.1); Carbon Dioxide 24.5 mMol/L (20.0-31.0); Chloride 104 mMol/L (98-107); Creatinine (Component) 0.6 mg/dL (0.6-1.3); Estimated Creatinine Clearance 114.5 mL/min (>60); Globulin 2.0 gm/dL (2.3-3.5); Glucose 98 mg/dL (74-106); Magnesium 1.9 mg/dL (1.6-2.6); Osmolality,Calculated 274 (275-295); Phosphorous 3.5 mg/dL (2.4-5.1); Potassium 3.9 mMol/L (3.4-5.1); Sodium 138 mMol/L (136-145); Total Protein 5.5 gm/dL (5.7-8.2); eGFR > 60 See Note
[2025-02-06] MEDS: MORPHINE SULF INJ 4 MG/ML VIAL 2 MG IVP ×3 (07:36→21:07)
[2025-02-06 08:00] VITALS: BP 112/60; PULSE 76; RESP 19; TEMP 36.4; O2SAT 98
[2025-02-06] MEDS: VANCOMYCIN/D5W 1,250 MG IVPB 250 ML 120 MG IV ×2 (09:50→22:47)
--- NOTE | 2025-02-06 11:02 | ESPR_ITS ---
<Statement entered by Doreen Holbrook MD - 02/06/25 17:55> Patient was seen and examined at bedside. I agree on the assessment and plan on this note as documented by resident Anderson Fish DO PGY1. 59-year-old female with past medical history of anxiety and chronic smoking presented to [facility] ED on 02/04/2025 with progressive erythema pain and swelling in the right lower abdominal wall extending to perineal region, was evaluated by general surgery who recommended management with IV antibiotics for cellulitis, will continue IV Zosyn vancomycin and clindamycin, erythema has improved. Pending blood cultures, anticipate discharge in the next 24 hours post culture finalization, will likely be discharged on antibiotics with close outpatient follow-up. Case discussed with attending Dr. Pierce Holbrook MD PGY-2 Documentation for date of: 02/06/25 Subjective Subjective Interval history: Patient's abdominal cellulitis shows decreased erythema and edema compared to marked borders from prior assessment. Patient continues to report burning discomfort and noted minor serosanguinous oozing. Patient advised to avoid scratching the area. Will continue IV zosyn 3.375mg q8hr, IV vancomycin, IV Clindamycin 900mg IV q8hr. Added Nicotine patch x1. No Overnight events. Labs reviewed and patient examined at the bedside. Denies chest pain, palpation, SOB, N/V, fevers or chills. Exam Vital Signs Temp Pulse Resp BP Pulse Ox O2 Del Method 97.6 F 76 19 112/60 98 Room Air 02/06/25 08:00 02/06/25 08:00 02/06/25 08:00 02/06/25 08:00 02/06/25 08:00 02/06/25 08:00 Narrative Exam General: No acute distress, well nourished, AAO x3 Eye: PERRL, EOMI, normal conjunctiva, no scleral icterus HENT: Normocephalic, atraumatic, hearing intact to conversation at normal volume, moist oral mucosa Neck: Supple, non-tender, no JVD, no lymphadenopathy Lungs: Non-labored respirations, symmetric chest rise, Clear to auscultate bilaterally, No wheezing, rhonchi, crackles Heart: Peripheral pulses intact bilaterally, Regular Rate and Rhythm. Abdomen: see Skin Musculoskeletal: Normal range of motion and strength, No cyanosis or edema, No visible joint swelling Skin: Swelling, erythema, and a firm, tender area extending from the right lower quadrant to the mid-left lower quadrant, involving the mons pubis and vulvar region. The area is malodorous with purulent and serosanguinous drainage, including dark blood. Psychiatric: Cooperative, appropriate mood and affect, Awake and alert, not agitated Neuro: Cranial nerves II-XII grossly intact. Strength 5/5 throughout. Sensations intact to light touch. Objective Labs 02/07/25 04:40 02/07/25 04:40 Labs: Laboratory Results - last 24 hr 02/06/25 05:23 WBC 12.7 H RBC 3.27 L Hgb 10.4 L Hct 30.9 L MCV 95 MCH 31.8 MCHC 33.7 RDW Std Deviation 47.6 H Plt Count 368 Neut % (Auto) 68 Lymph % (Auto) 21 [place] % (Auto) 8 Eos % (Auto) 1 Baso % (Auto) 0 Neut # (Auto) 8.7 H Lymph # (Auto) 2.7 [place] # (Auto) 1.0 H Eos # (Auto) 0.2 Baso # (Auto) 0.0 Immature Gran # (Auto) 0.13 H Absolute Nucleated RBC 0.00 Immature Gran % 1 H Nucleated RBC % 0 Sodium 138 Potassium 3.9 Chloride 104 Carbon Dioxide 24.5 Anion Gap 10 BUN 10 Creatinine 0.6 Estim Creat Clear Calc 114.5 eGFR > 60 BUN/Creatinine Ratio 17 Glucose 98 Calculated Osmolality 274 L Calcium 8.7 Corrected Calcium 9.1 Phosphorus 3.5 Magnesium 1.9 Total Bilirubin 0.3 AST 20 ALT 25 Alkaline Phosphatase 127 H Total Protein 5.5 L Albumin 3.5 Globulin 2.0 L Albumin/Globulin Ratio 1.8 Quality Measures Quality Measures VTE prophylaxis Assessment & Plan Assessment Current Active Medications: Generic Name Dose Route Start Last Admin Trade Name Freq PRN Reason Stop Dose Admin Acetaminophen 650 mg 02/04/25 21:36 Acetaminophen 325 Mg Tablet PO 03/06/25 21:35 Q6H PRN Fever >100.3 Acetaminophen 650 mg 02/04/25 21:36 02/06/25 00:17 Acetaminophen 325 Mg Tablet PO 03/06/25 21:35 650 mg Q6H PRN Administration PAIN SCALE 1-3 (mild Heparin Sodium (Porcine) 5,000 unit 02/04/25 22:00 02/06/25 05:34 Heparin Sod Inj 5000 Unit/Ml Vial SC 02/18/25 21:59 5,000 unit Q8HR IMAN Administration Piperacillin/Tazobactam/Dextrose 3.375 gm in 50 mls @ 12.5 mls/hr 02/05/25 14:00 02/06/25 05:33 Zosyn IV 02/12/25 13:59 12.5 mls/hr Q8HR IMAN Administration Protocol Vancomycin HCl/Dextrose 250 mls @ 120 mls/hr 02/05/25 10:00 02/06/25 09:50 Vancomycin/D5w 1,250 Mg Ivpb IV 02/12/25 09:59 120 mls/hr Q12H IMAN Administration Protocol Clindamycin Phosphate 900 mg/ 50 mls @ 50 mls/hr 02/05/25 14:00 02/06/25 05:34 IV Miscellaneous Supplies IV 02/12/25 13:59 50 mls/hr Q8HR IMAN Administration Morphine Sulfate 2 mg 02/04/25 21:39 02/06/25 07:36 Morphine Sulf Inj 4 Mg/Ml Vial IVP 02/09/25 21:38 2 mg Q6HR PRN Administration pain 4-7 Ondansetron HCl 4 mg 02/04/25 21:36 Ondansetron Inj 2 Mg/Ml Inj 2 Ml IVP 03/06/25 21:35 Q6H PRN NAUSEA OR VOMITING Protocol Pharmacy Consult 1 each 02/05/25 09:00 Vancomycin Pharmacy To Dose 1 Each Each IV 03/07/25 08:59 QDAY PRN PROTOCOL Sennosides 1 tab 02/04/25 23:38 Senna/Docusate Sod 1 Tab Tablet PO 03/06/25 23:37 QDAY PRN CONSTIPATION Protocol Plan Ms. Winchester is a 59 y/o female with PMH anxiety, tobacco use who presented to the ED on 02/04 with progressive erythema, pain, and swelling of the right lower abdominal wall that extends to mons pubis and vulva x 7 days. Admitted for cellulitis. #Cellulitis of right lateral and anterior lower abdomen -Erythema, edema, warmth, and TTP RLQ, mons pubis, and vulva with lesion weeping serosanguinous fluid x 7 days -Afebrile, leukocytosis WBC 17.3. Lactic acid WNL. Procal 1.45, CRP 26.5. -Seen on CT a/p w/ - extends into peritoneum. No fluid filled abscess to drain -Dr. Conte consulted, no surgical intervention required at this time -Given ketorolac 30 mg IV, Zosyn 3.365 g IV, Clindamycin 600 mg IV, morphine 4 mg IV. -Risk factors: smoking, obesity Plan: - Consulted gen surg, appreciate recs - On IV zosyn 3.375mg q6hr, IV vancomycin, IV Clindamycin 900mg IV q8hr - Tylenol PO PRN, Morphine 2 mg IV q6h PRN - Pending blood cx, HIV, A1C #Hypokalemia On admit K 3.3 Plan: - Replete as needed Checklist Dispo: Admit to med surg for IV abx Diet: Regular Bowel Reg: doc/senna PRN VTE ppx: heparin subQ GI ppx: n/a Code status: full Assessment and plan discussed with my attending physician Dr. Arthur and Dr. Holbrook (PGY-2) Dr. Fish (PGY-1) - Internal medicine resident Attending Provider Attestation/Addendum I have examined the patient, reviewed labs and imaging findings, discussed the case with the resident(s), and reviewed entered orders. I agree with the plan of care as outlined in this note, with these additional summaries/recommendations: Patient seen at bedside. No acute overnight events. She reports some improvement in abdominal pain and discomfort. She continues to try to avoid itching. Patient admitted for significant cellulitis. CT abdomen and pelvis revealed extensive cellulitis pattern in the subcutaneous fatty tissue in right lateral and anterior lower abdomen with skin thickening and inflammation extending into the perineum. Erythema currently not spreading beyond borders indicating improvement. I cannot palpate any significant fluctuance today although we will continue to monitor given the severity of cellulitis. General surgery was consulted and no surgical intervention needed at this time. Continue broad-spectrum antibiotics. Blood cultures show no growth at 24 hours and will await 48-hour taiwo before ruling out bacteremia. Repeat level in AM. Continue pain management. Patient to let medical team know if she would like nicotine patch. Patient updated on the plan and agreement. All questions answered satisfaction. Please see residents note for additional details and management. Dr. Sandhya MD
[2025-02-06 12:00] VITALS: BP 100/60; PULSE 76; RESP 18; TEMP 36.3; O2SAT 96
[2025-02-06 16:00] VITALS: BP 97/68; PULSE 78; RESP 18; TEMP 36.3; O2SAT 96
--- NOTE | 2025-02-06 18:15 | PD.SURPROG ---
Documentation for date of: 02/06/25 Subjective Subjective Narrative: Pt is seen and examined. Her pain is improving Exam Vital Signs Temp Pulse Resp BP Pulse Ox O2 Del Method 97.4 F 76 18 100/60 96 Room Air 02/06/25 12:00 02/06/25 12:00 02/06/25 12:00 02/06/25 12:00 02/06/25 12:00 02/06/25 12:00 Constitutional Constitutional: no acute distress Routine Abdominal Exam Comments: Cellulitis improving. Small area of fluctance with spontaneous purulent drainage Results Results: Laboratory Laboratory results: results reviewed Assessment & Plan Plan Continue antibiotics, she has spontaneous drainage.
[2025-02-06 20:00] VITALS: BP 114/67; PULSE 79; RESP 17; TEMP 36.3; O2SAT 99
[2025-02-06 22:38] LABS: Vancomycin,Trough 13.3 mcg/mL (5.0-10.0)
[2025-02-07] VITALS: BP 110/74; PULSE 82; RESP 17; TEMP 36.4; O2SAT 98
[2025-02-07] MEDS: ACETAMINOPHEN 325 MG TABLET 650 MG PO (01:33)
[2025-02-07 04:00] VITALS: BP 91/65; PULSE 72; RESP 17; TEMP 36.2; O2SAT 93
[2025-02-07] MEDS: PIPER/TAZO 3.375 GM PREMIX 3.375 GM/50 ML BAG IV ×3 (05:31→22:05)
[2025-02-07] MEDS: CLINDAMYCIN 900MG IVPB 900 MG in PRE-MIXED 1 BAG 50 MG IV ×3 (05:31→22:05)
[2025-02-07] MEDS: HEPARIN SOD INJ 5000 UNIT/ML VIAL SC ×3 (05:31→22:06)
[2025-02-07 05:52] LABS: Basophils # (Auto) 0.1 Thou/mm3 (0.0-0.2); Basophils % (Auto) 1 % (0-2.5); Eosinophils # (Auto) 0.3 Thou/mm3 (0.0-0.5); Eosinophils % (Auto) 2 % (0-10); Hematocrit 31.2 % (36.0-46.0); Hemoglobin 10.7 g/dL (12.0-16.0); Immature Granulocytes Auto 0.16 Thou/mm3 (0.00-0.00); Lymphocytes # (Auto) 2.5 Thou/mm3 (1.0-4.8); Lymphocytes % (Auto) 22 % (10-50); Mean Corpuscular HGB Conc 34.3 g/dl (31.0-37.0); Mean Corpuscular Hemoglobin 31.8 pg (25.0-35.0); Mean Corpuscular Volume 93 fL (80-100); Monocytes # (Auto) 0.9 Thou/mm3 (0.0-0.8); Monocytes % (Auto) 8 % (0-12); Neutrophils # (Auto) 7.3 Thou/mm3 (1.8-7.7); Neutrophils % (Auto) 65 % (37-80); Nucleated Red Blood Cell # 0.00 Thou/mm3 (0.00-0.00); Nucleated Red Blood Cell % 0 /100 WBC (0); Platelet Count 433 Thou/mm3 (140-440); RDW Standard Deviation 46.0 fL (36.4-46.3); Red Blood Count 3.36 Miln/mm3 (4.00-5.20); White Blood Count 11.2 Thou/mm3 (3.6-11.0)
[2025-02-07 06:22] LABS: Alanine Aminotransferase 19 U/L (10-49); Albumin, Serum 3.5 gm/dL (3.5-5.0); Albumin/Globulin Ratio 1.7 (1.2-2.2); Alkaline Phosphatase 119 U/L (46-116); Anion Gap 9 (7-16); Aspartate Amino Transferase 13 U/L (0-34); BUN/Creatinine Ratio 15 Ratio (12-20); Bilirubin,Total 0.2 mg/dL (0.3-1.2); Blood Urea Nitrogen 9 mg/dL (9-23); Calcium 8.6 mg/dL (8.3-10.6); Calcium (Corrected) 9.0 mg/dL (8.5-10.1); Carbon Dioxide 25.1 mMol/L (20.0-31.0); Chloride 104 mMol/L (98-107); Creatinine (Component) 0.6 mg/dL (0.6-1.3); Estimated Creatinine Clearance 114.5 mL/min (>60); Globulin 2.1 gm/dL (2.3-3.5); Glucose 96 mg/dL (74-106); Magnesium 1.9 mg/dL (1.6-2.6); Osmolality,Calculated 274 (275-295); Phosphorous 4.1 mg/dL (2.4-5.1); Potassium 3.9 mMol/L (3.4-5.1); Sodium 138 mMol/L (136-145); Total Protein 5.6 gm/dL (5.7-8.2); eGFR > 60 See Note
[2025-02-07 08:00] VITALS: BP 100/70; PULSE 79; RESP 19; TEMP 36.7; O2SAT 95
[2025-02-07] MEDS: VANCOMYCIN/D5W 1,250 MG IVPB 250 ML 120 MG IV ×2 (09:06→22:22)
[2025-02-07] MEDS: MORPHINE SULF INJ 4 MG/ML VIAL 2 MG IVP ×2 (11:43→19:32)
[2025-02-07 12:00] VITALS: BP 105/70; PULSE 69; RESP 18; TEMP 36.2; O2SAT 98
--- NOTE | 2025-02-07 13:39 | PC.SS ---
Rounding: Dg consult/reccs pending poss DC home later today
--- NOTE | 2025-02-07 15:42 | ESPR_ITS ---
Documentation for date of: 02/07/25 Subjective Subjective Interval history: No Overnight events. Labs reviewed and patient examined at the bedside. Denies chest pain, palpation, SOB, N/V, fevers or chills. Patient's abdominal cellulitis shows stable erythema and edema compared to marked borders from prior assessment. Patient continues to report burning discomfort and noted significant serosanguinous oozing. Patient advised to avoid scratching the area. Will continue IV zosyn 3.375mg q8hr, IV vancomycin, IV Clindamycin 900mg IV q8hr. Case discussed with general surgeon Dr. Conet who recommended IV antibiotics, patient stable to be discharged in a.m., patient to follow-up with Dr. Conte outpatient in 10 days. General surgery recommends discharge on clindamycin or Bactrim. Exam Vital Signs Temp Pulse Resp BP Pulse Ox O2 Del Method 97.2 F 69 18 105/70 98 Room Air 02/07/25 12:00 02/07/25 12:00 02/07/25 12:00 02/07/25 12:00 02/07/25 12:00 02/07/25 12:00 Narrative Exam General: No acute distress, well nourished, AAO x3 Eye: PERRL, EOMI, normal conjunctiva, no scleral icterus HENT: Normocephalic, atraumatic, hearing intact to conversation at normal volume, moist oral mucosa Neck: Supple, non-tender, no JVD, no lymphadenopathy Lungs: Non-labored respirations, symmetric chest rise, Clear to auscultate bilaterally, No wheezing, rhonchi, crackles Heart: Peripheral pulses intact bilaterally, Regular Rate and Rhythm. Abdomen: see Skin Musculoskeletal: Normal range of motion and strength, No cyanosis or edema, No visible joint swelling Skin: Swelling, erythema, and a firm, tender area extending from the right lower quadrant to the mid-left lower quadrant, involving the mons pubis and vulvar region. The area is malodorous with purulent and serosanguinous drainage, including dark blood. Psychiatric: Cooperative, appropriate mood and affect, Awake and alert, not agitated Neuro: Cranial nerves II-XII grossly intact. Strength 5/5 throughout. Sensations intact to light touch. Objective Labs 02/08/25 04:23 02/08/25 04:23 Labs: Laboratory Results - last 24 hr 02/06/25 02/07/25 21:19 04:40 WBC 11.2 H RBC 3.36 L Hgb 10.7 L Hct 31.2 L MCV 93 MCH 31.8 MCHC 34.3 RDW Std Deviation 46.0 Plt Count 433 D Neut % (Auto) 65 Lymph % (Auto) 22 [place] % (Auto) 8 Eos % (Auto) 2 Baso % (Auto) 1 Neut # (Auto) 7.3 Lymph # (Auto) 2.5 [place] # (Auto) 0.9 H Eos # (Auto) 0.3 Baso # (Auto) 0.1 Immature Gran # (Auto) 0.16 H Absolute Nucleated RBC 0.00 Immature Gran % 1 H Nucleated RBC % 0 Sodium 138 Potassium 3.9 Chloride 104 Carbon Dioxide 25.1 Anion Gap 9 BUN 9 Creatinine 0.6 Estim Creat Clear Calc 114.5 eGFR > 60 BUN/Creatinine Ratio 15 Glucose 96 Calculated Osmolality 274 L Calcium 8.6 Corrected Calcium 9.0 Phosphorus 4.1 Magnesium 1.9 Total Bilirubin 0.2 L AST 13 ALT 19 Alkaline Phosphatase 119 H Total Protein 5.6 L Albumin 3.5 Globulin 2.1 L Albumin/Globulin Ratio 1.7 Vancomycin Trough 13.3 H Quality Measures Quality Measures VTE prophylaxis Assessment & Plan Assessment Current Active Medications: Generic Name Dose Route Start Last Admin Trade Name Freq PRN Reason Stop Dose Admin Acetaminophen 650 mg 02/04/25 21:36 Acetaminophen 325 Mg Tablet PO 03/06/25 21:35 Q6H PRN Fever >100.3 Acetaminophen 650 mg 02/04/25 21:36 02/07/25 01:33 PST Acetaminophen 325 Mg Tablet PO 03/06/25 21:35 650 mg Q6H PRN Administration PAIN SCALE 1-3 (mild Heparin Sodium (Porcine) 5,000 unit 02/04/25 22:00 02/07/25 13:24 Heparin Sod Inj 5000 Unit/Ml Vial SC 02/18/25 21:59 5,000 unit Q8HR IMAN Administration Piperacillin/Tazobactam/Dextrose 3.375 gm in 50 mls @ 12.5 mls/hr 02/05/25 14:00 02/07/25 14:12 Zosyn IV 02/12/25 13:59 12.5 mls/hr Q8HR IMAN Administration Protocol Vancomycin HCl/Dextrose 250 mls @ 120 mls/hr 02/05/25 10:00 02/07/25 09:06 Vancomycin/D5w 1,250 Mg Ivpb IV 02/12/25 09:59 120 mls/hr Q12H IMAN Administration Protocol Clindamycin Phosphate 900 mg/ 50 mls @ 50 mls/hr 02/05/25 14:00 02/07/25 13:23 IV Miscellaneous Supplies IV 02/12/25 13:59 50 mls/hr Q8HR IMAN Administration Morphine Sulfate 2 mg 02/04/25 21:39 02/07/25 11:43 Morphine Sulf Inj 4 Mg/Ml Vial IVP 02/09/25 21:38 2 mg Q6HR PRN Administration pain 4-7 Ondansetron HCl 4 mg 02/04/25 21:36 Ondansetron Inj 2 Mg/Ml Inj 2 Ml IVP 03/06/25 21:35 Q6H PRN NAUSEA OR VOMITING Protocol Pharmacy Consult 1 each 02/05/25 09:00 Vancomycin Pharmacy To Dose 1 Each Each IV 03/07/25 08:59 QDAY PRN PROTOCOL Sennosides 1 tab 02/04/25 23:38 Senna/Docusate Sod 1 Tab Tablet PO 03/06/25 23:37 QDAY PRN CONSTIPATION Protocol Plan Ms. Winchester is a 59 y/o female with PMH anxiety, tobacco use who presented to the ED on 02/04 with progressive erythema, pain, and swelling of the right lower abdominal wall that extends to mons pubis and vulva x 7 days. Admitted for cellulitis. #Cellulitis of right lateral and anterior lower abdomen #Leukocytosis -Erythema, edema, warmth, and TTP RLQ, mons pubis, and vulva with lesion weeping serosanguinous fluid x 7 days -Afebrile, leukocytosis WBC 17.3. Lactic acid WNL. Procal 1.45, CRP 26.5. -Seen on CT a/p w/ - extends into peritoneum. No fluid filled abscess to drain -Dr. Conte consulted, no surgical intervention required at this time -Given ketorolac 30 mg IV, Zosyn 3.365 g IV, Clindamycin 600 mg IV, morphine 4 mg IV. -Risk factors: smoking, obesity - Blood culture negative, HIV negative, A1c 5.1 Plan: - Consulted gen surg, appreciate recs - On IV zosyn 3.375mg q6hr, IV vancomycin, IV Clindamycin 900mg IV q8hr - Tylenol PO PRN, Morphine 2 mg IV q6h PRN #Hypokalemia, resolved On admit K 3.3 Plan: - Monitor electrolytes #Chronic smoker - Smoking cessation education #Normocytic normochromic anemia -Outpatient anemia workup Checklist Dispo: Admit to med surg for IV abx Diet: Regular Bowel Reg: doc/senna PRN VTE ppx: heparin subQ GI ppx: n/a Code status: full Assessment and plan discussed with my attending physician Dr. Sandhya Holbrook (PGY-2) - Internal medicine resident Attending Provider Attestation/Addendum I have examined the patient, reviewed labs and imaging findings, discussed the case with the resident(s), and reviewed entered orders. I agree with the plan of care as outlined in this note, with these additional summaries/recommendations: Patient seen at bedside. No acute overnight events. 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 She continues to report improvement in abdominal pain and discomfort. She continues to try to avoid itching. Patient admitted for significant abdominal cellulitis. CT abdomen and pelvis revealed extensive cellulitis pattern in the subcutaneous fatty tissue in right lateral and anterior lower abdomen with skin thickening and inflammation extending into the perineum. Erythema currently not spreading beyond borders indicating improvement. Today I was able to palpate a pocket of fluctuance and there is spontaneous drainage. General surgery following, recommendations appreciated. Patient still requires hospitalization for further IV antibiotics. Leukocytosis improving. Blood culture showed no growth at 48 hours. Continue pain management. Patient to let medical team know if she would like nicotine patch. Patient updated on the plan and agreement. All questions answered satisfaction. Please see residents note for additional details and management. Dr. Sandhya MD
[2025-02-07 16:00] VITALS: BP 102/67; PULSE 76; RESP 17; TEMP 36.3; O2SAT 95
[2025-02-07 20:00] VITALS: BP 111/69; PULSE 84; RESP 16; TEMP 37; O2SAT 97
[2025-02-08] VITALS: BP 125/77; PULSE 86; RESP 18; TEMP 37; O2SAT 97
[2025-02-08 04:00] VITALS: BP 110/66; PULSE 67; RESP 16; TEMP 36.4; O2SAT 96
[2025-02-08] MEDS: MORPHINE SULF INJ 4 MG/ML VIAL 2 MG IVP (04:31)
[2025-02-08] MEDS: CLINDAMYCIN 900MG IVPB 900 MG in PRE-MIXED 1 BAG 50 MG IV (05:20)
[2025-02-08] MEDS: PIPER/TAZO 3.375 GM PREMIX 3.375 GM/50 ML BAG IV (05:21)
[2025-02-08] MEDS: HEPARIN SOD INJ 5000 UNIT/ML VIAL SC (05:22)
[2025-02-08 05:39] LABS: Basophils # (Auto) 0.1 Thou/mm3 (0.0-0.2); Basophils % (Auto) 1 % (0-2.5); Eosinophils # (Auto) 0.4 Thou/mm3 (0.0-0.5); Eosinophils % (Auto) 3 % (0-10); Hematocrit 36.1 % (36.0-46.0); Hemoglobin 12.2 g/dL (12.0-16.0); Immature Granulocytes Auto 0.35 Thou/mm3 (0.00-0.00); Lymphocytes # (Auto) 2.9 Thou/mm3 (1.0-4.8); Lymphocytes % (Auto) 25 % (10-50); Mean Corpuscular HGB Conc 33.8 g/dl (31.0-37.0); Mean Corpuscular Hemoglobin 32.0 pg (25.0-35.0); Mean Corpuscular Volume 95 fL (80-100); Monocytes # (Auto) 0.7 Thou/mm3 (0.0-0.8); Monocytes % (Auto) 6 % (0-12); Neutrophils # (Auto) 7.1 Thou/mm3 (1.8-7.7); Neutrophils % (Auto) 62 % (37-80); Nucleated Red Blood Cell # 0.00 Thou/mm3 (0.00-0.00); Nucleated Red Blood Cell % 0 /100 WBC (0); Platelet Count 526 Thou/mm3 (140-440); RDW Standard Deviation 46.8 fL (36.4-46.3); Red Blood Count 3.81 Miln/mm3 (4.00-5.20); White Blood Count 11.5 Thou/mm3 (3.6-11.0)
[2025-02-08 06:04] LABS: Alanine Aminotransferase 17 U/L (10-49); Albumin, Serum 3.8 gm/dL (3.5-5.0); Albumin/Globulin Ratio 1.5 (1.2-2.2); Alkaline Phosphatase 125 U/L (46-116); Anion Gap 11 (7-16); Aspartate Amino Transferase 15 U/L (0-34); BUN/Creatinine Ratio 17 Ratio (12-20); Bilirubin,Total 0.2 mg/dL (0.3-1.2); Blood Urea Nitrogen 12 mg/dL (9-23); Calcium 9.0 mg/dL (8.3-10.6); Calcium (Corrected) 9.2 mg/dL (8.5-10.1); Carbon Dioxide 23.9 mMol/L (20.0-31.0); Chloride 104 mMol/L (98-107); Creatinine (Component) 0.7 mg/dL (0.6-1.3); Estimated Creatinine Clearance 98.2 mL/min (>60); Globulin 2.6 gm/dL (2.3-3.5); Glucose 93 mg/dL (74-106); Magnesium 1.9 mg/dL (1.6-2.6); Osmolality,Calculated 277 (275-295); Potassium 4.1 mMol/L (3.4-5.1); Sodium 139 mMol/L (136-145); Total Protein 6.4 gm/dL (5.7-8.2); eGFR > 60 See Note
[2025-02-08 08:00] VITALS: BP 111/55; PULSE 80; RESP 17; TEMP 36.2; O2SAT 95
--- NOTE | 2025-02-08 08:25 | PD.SURPROG ---
Documentation for date of: 02/08/25 Subjective Subjective Narrative: Patient is seen and examined. Pain significantly improved Exam Vital Signs Temp Pulse Resp BP Pulse Ox O2 Del Method 97.6 F 67 16 110/66 96 Room Air 02/08/25 04:00 02/08/25 04:00 02/08/25 04:00 02/08/25 04:00 02/08/25 04:00 02/08/25 04:00 Constitutional Constitutional: no acute distress Routine Abdominal Exam Comments: Significant improvement of right lower quadrant and groin cellulitis. Small opening with spontaneous drainage Assessment & Plan Assessment Additional comments: Abdominal wall cellulitis with spontaneous drainage of abscess Plan Significant improvement of cellulitis. May discharge on oral antibiotics for 10 days
[2025-02-08] MEDS: VANCOMYCIN/D5W 1,250 MG IVPB 250 ML 120 MG IV (09:14)
--- NOTE | 2025-02-08 10:19 | ESDS_ITS ---
<Statement entered by Anselmo Rocha MD - 02/08/25 15:29> Patient seen and examined at bedside. I discussed and supervised with the analytics intern physician who took care of this patient. I personally saw and examined the patient. I agree with most of the assessment and plan. Plan of care discussed with attending Dr. Arthur. Anselmo Rocha MD PGY-2 Planned Discharge Date 02/08/25 DS: Providers Provider Date of admission: 02/06/25 10:43 Primary care physician: Kenny Pak MD Admitting Provider: Cindy Street MD Attending Provider on Admission: Cindy Street MD Consults: 02/04/25 19:02 Consult to General Surgery Stat Comment: Abdominal wall cellulitis Consulting Provider: Radha Conte 02/04/25 21:41 Referral Wound Care Stat Comment: 02/05/25 00:46 [facility] Referral - Nutrition Routine Comment: Positive screening for nutrition needs. [facility] Referral - Safety Routine Comment: Positive screening for safety needs. 02/05/25 01:42 Referral Wound Care Routine Comment: Attending Provider on DC: Ofelia Fish DO Discharging Provider: Ofelia Fish DO DS: Diagnosis Problem List Completed Was Problem List Reviewed/Reconciled?: Yes Hospital Course Hospital Course Hospital course: Summary: Ms. Winchester is a 59 y/o female with PMH anxiety, tobacco use who presented to the ED on 02/04 with progressive erythema, pain, and swelling of the right lower abdominal wall that extends to mons pubis and vulva x 7 days. Admitted for cellulitis. Per General Surgery, surgical intervention was not required. Patient received IV antibiotics and was discharged with oral antibiotics with instructions to follow up with General Surgery, Dr. Conte within 10 days. ED course: Afebrile, Labs significant for WBC 17.3, K 3.3, alk phos 146, lactic acid 1.2, CRP 26.5, procal 1.45. CT a/p w/ contrast showed 2 mm nonobstructing right renal calculus; cellulitis of right lateral and anterior lower abdomen extending into perineum, no drainable abscess. Consulted Dg, noted no surgical intervention appropriate at this time. Given ketorolac 30 mg IV, Zosyn 3.365 g IV, Clindamycin 600 mg IV, morphine 4 mg IV. Hospital Course: Upon admission to the hospital, patient was given IV zosyn 3.375g q6hr and IV Vancomycin. Later IV clindamycin 900mg IV q8hr was added for antibiotic regimen. Per general surgery, it was noted that surgical intervention was unnecessary. Pain controlled by Tylenol PO PRN, Morphine 2 mg IV q6h PRN. Patient's abdominal cellulitis showed decreased erythema and edema compared to marked borders drawn when patient was admitted. Patient continued to report burning discomfort and noted minor serosanguinous oozing. Patient advised to avoid scratching the area. Blood culture has been negative for 48 hrs. Patient was medically cleared for discharge from the General Surgery standpoint. #Cellulitis of right lateral and anterior lower abdomen #Leukocytosis #Hypokalemia #Chronic smoker #Normocytic normochromic anemia Instructions: You have been started on the following medications: - Clindamycin 300 mg taken 4 times daily for 7 days. - Nicotine patches, 1 daily as needed - [place] 5, up to 3 per day as needed for pain, 7 pills total Please follow up with your primary doctor in 7-10 days. Please follow up with Dr. Conte, Surgery, in 10 days. Return to ED if you develop new or worsening symptoms. Please stop scratching your skin to keep it healthy and infection free - Follow up at [facility], [address] [place] [address]. Call [phone] for appointment. - Wound care to right side of your abdomen and pubic area: Apply warm compress to site for 10-15 minus than get into the shower, expressing drainage as possible daily with over the counter antibacterial soaps. Cover draining area with dry gauze or maxi pads. Change daily and as needed Assessment and plan discussed with my attending physician Dr. Dr. Fish (PGY-1) - Internal medicine resident Status at Discharge Overall status at discharge: patient is progressing back to baseline Time Spent with Patient Time attestation: Total time spent providing and/or coordinating discharge services: Time spent: Greater than 30 minutes Exam Vital Signs Temp Pulse Resp BP Pulse Ox O2 Del Method 97.2 F 80 17 111/55 L 95 Room Air 02/08/25 08:00 02/08/25 08:00 02/08/25 08:00 02/08/25 08:00 02/08/25 08:00 02/08/25 08:00 Narrative Exam General: No acute distress, well nourished, AAO x3 Eye: PERRL, EOMI, normal conjunctiva, no scleral icterus HENT: Normocephalic, atraumatic, hearing intact to conversation at normal volume, moist oral mucosa Neck: Supple, non-tender, no JVD, no lymphadenopathy Lungs: Non-labored respirations, symmetric chest rise, Clear to auscultate bilaterally, No wheezing, rhonchi, crackles Heart: Peripheral pulses intact bilaterally, Regular Rate and Rhythm. Abdomen: see Skin Musculoskeletal: Normal range of motion and strength, No cyanosis or edema, No visible joint swelling Skin: Decreased Swelling, erythema, and a firm, tender area extending from the right lower quadrant to the mid-left lower quadrant, involving the mons pubis and vulvar region. The area is malodorous with purulent and serosanguinous d rainage, including dark blood. Psychiatric: Cooperative, appropriate mood and affect, Awake and alert, not agitated Neuro: Cranial nerves II-XII grossly intact. Strength 5/5 throughout. Sensations intact to light touch. Discharge Plan Plan Patient Disposition: HOME (Self Care) Patient condition on transfer: Stable Care Plan Goals: You have been started on the following medications: - Clindamycin 300 mg taken 4 times daily for 7 days. - Nicotine patches, 1 daily as needed - [place] 5, up to 3 per day as needed for pain, 7 pills total Please follow up with your primary doctor in 7-10 days. Please follow up with Dr. Conte, Surgery, in 10 days. Return to ED if you develop new or worsening symptoms. Please stop scratching your skin to keep it healthy and infection free - Follow up at [facility], [address] [place] [address]. Call [phone] for appointment. - Wound care to right side of your abdomen and pubic area: Apply warm compress to site for 10-15 minus than get into the shower, expressing drainage as possible daily with over the counter antibacterial soaps. Cover draining area with dry gauze or maxi pads. Change daily and as needed Prescriptions/Referrals Prescriptions/Med Rec: New clindamycin HCl [Cleocin HCl] 300 mg capsule 300 mg PO Q6H 7 Days Qty: 28 0RF nicotine 21 mg/24 hr patch 24 hour 21 mg topical QDAY Qty: 28 2RF hydrocodone-acetaminophen 5-325 mg tablet 1 tab PO Q8H MDD 3 PRN (Reason: pain) Qty: 7 0RF Discontinued Xanax 0.25 mg 1 tab PO TID/PRN ANXIETY Qty: 12 0RF Buspirone * (BUSPAR *) 10 MG tablet 10 mg PO BID PRN (Reason: ANXIETY) Qty: 10 0RF cetirizine 10 mg tablet 10 mg PO QDAY Qty: 30 0RF meloxicam 7.5 mg tablet 7.5 mg PO QDAY Qty: 10 0RF Referrals: Kenny Pak MD [Primary Care Provider, Family Practice] Patient/Caregiver Discharge Instructions Education Materials: Chlorhexidine topical antiseptic, Your Body's Response to Anxiety, Treating Anxiety Disorders ..., Discharge Instructions for Cellulitis Print Language: Chinese Stand Alone Forms: Ramila Award Info., Patient Portal Info Letter Discharge Order Discharge Orders: Discharge (Routine); Ordered 02/08/25 Ordered By: Anselmo Rocha Quality Discharge Quality Measures VTE prophylaxis Attestestation MD Attestation I have examined the patient, reviewed labs and imaging findings, discussed the case with the resident(s), and reviewed entered orders. I agree with the plan of care as outlined in this note. Time Spent: [address] Sandhya MD
[2025-02-08 11:58] VITALS: BP 112/72; PULSE 67; RESP 16; TEMP 36.1; O2SAT 93
== END 2025-02-08 12:57 | disposition home or self-care (01) | DRG 383 ==
LOC: SERX 19:15 → SERHOLD 22:45 → S3NX 02-05 06:22
PROVIDERS: Nurse Practitioner Family; Admitting Provider Student in an Organized Health Care Education/Training Program; Emergency Provider Emergency Medicine; PCP Family Medicine; Visit Provider Student in an Organized Health Care Education/Training Program
DX: L03.311 Cellulitis of abdominal wall (principal); F41.9 Anxiety disorder, unspecified; F17.200 Nicotine dependence, unspecified, uncomplicated; E87.6 Hypokalemia; D64.9 Anemia, unspecified; N20.0 Calculus of kidney; E66.811 Obesity, class 1; Z68.32 Body mass index [BMI] 32.0-32.9, adult; Z71.6 Tobacco abuse counseling
CPT/HCPCS: 36415; 71045; 74177; 80053; 80202; 83036; 83605; 83735; 84100; 84145; 85025; 85610; 85730; 86140; 86703; 87040; 93005; 96365; 96372; 96375; 96376; 99284; A4649; G0378; J0736; J1644; J1885; J2270; J2543; J3373; J3480; Q9967; S0077; A9270; J0737